=== PATIENT | male | born 1960 | race Caucasian/White ===

== ENCOUNTER 2016-10-20 11:46 | Emergency (ER) | payer SELFPAY ==
[~2016-10-20] VITALS: Ht 177.8 cm; Wt 84.0 kg
[2016-10-20 12:13] VITALS: BP 130/81; PULSE 58; RESP 18; TEMP 98.6; O2SAT 99
[2016-10-20 12:16] VITALS: BP 130/81; PULSE 58; RESP 18; TEMP 98.6; O2SAT 99
--- NOTE | 2016-10-20 12:38 | RADRPT ---
EXAM DATE/TIME: 10/20/2016 12:04 [place] COMPARISON: No previous studies available for comparison. INDICATIONS : Patient was sent from [place] because of irregular EKG and chest pain this morning. MEDICAL HISTORY : None. SURGICAL HISTORY : None. ENCOUNTER: Initial ACUITY: 1 day PAIN SCORE: 4/10 LOCATION: Bilateral chest FINDINGS: A single view of the chest demonstrates the lungs to be symmetrically aerated without evidence of mas s, infiltrate or effusion. The cardiomediastinal contours are unremarkable. Osseous structures are intact. CONCLUSION: No acute disease. Nathan Reeder MD FACR on October 20, 2016 at 12:36 Board Certified Radiologist. This report was verified electronically.
[2016-10-20 12:48] LABS: AUTOMATED NEUTROPHIL # 4.3 TH/MM3 (1.8-7.7); BASOPHIL % 0.5 % (0.0-2.0); EOSINOPHIL # 0.2 TH/MM3 (0-0.4); EOSINOPHIL % 2.6 % (0.0-4.0); HEMO FLAGS DIFF FINAL; LYMPH % 22.5 % (9.0-44.0); LYMPHOCYTE # 1.5 TH/MM3 (1.0-4.8); MEAN CORPUSCULAR HEMOGLOBIN 31.5 PG (27.0-34.0); MEAN CORPUSCULAR HGB CONC 35.4 % (32.0-36.0); MONO % 8.9 % (0.0-8.0); NEUT % 65.5 % (16.0-70.0); PLATELET COUNT 159 TH/MM3 (150-450); RED BLOOD COUNT 4.72 MIL/MM3 (4.50-5.90); WHITE BLOOD COUNT 6.6 TH/MM3 (4.0-11.0)
--- NOTE | 2016-10-20 12:59 | PD ---
HPI Chief Complaint: Abnormal Results Time Seen by Provider: 12:57 Travel History International Travel<30 days: No Contact w/Intl Traveler<30days: No Traveled to known affect area: No History of Present Illness HPI Patient comes to emergency Department from the [place] after having an abnormal EKG while at the [place] today. Patient reports he is getting an EKG done for a colonoscopy that scheduled in January. Patient denies any chest pain, shortness of breath, dizziness, syncope, lightheadedness, nausea, vomiting, headache, numbness or tingling or, loss change in bowel or bladder, back pain, neck pain, or history of heart disease. Patient denies anything making symptoms better or worse. Patient denies ever having a stress test. Patient reports he runs approximately 4 miles a week has had no issues with this. [facility] Past Medical History Medical History: Denies Significant Hx Tetanus Vaccination: Unknown Influenza Vaccination: No ?: Not Past Surgical History Surgical History: No Previous Surgery Social History Alcohol Use: Yes (4 BEERS/ WEEK ) Tobacco Use: No Substance Use: No Allergies-Medications (Allergen,Severity, Reaction): Coded Allergies: No Known Allergies (Unverified , 10/20/16) Reported Meds & Prescriptions Reported Meds & Active Scripts Active No Active Prescriptions or Reported Medications Review of Systems Except as stated in HPI: all other systems reviewed are Neg Physical Exam Narrative GENERAL: Well-developed, well nourished, in no acute distress, and non-ill appearing. SKIN: Focused skin assessment warm and dry. HEAD: Atraumatic. Normocephalic. EYES: Pupils equal and round. EOMI. No scleral icterus. No injection or drainage. ENT: No nasal bleeding or discharge. Mucous membranes pink and moist. NECK: Trachea midline. No JVD. Supple. No nuclear rigidity. CARDIOVASCULAR: Regular rate and rhythm. No murmur appreciated. RESPIRATORY: No accessory muscle use. No respiratory distress. Clear to auscultation. Breath sounds equal bilaterally. MUSCULOSKELETAL: No obvious deformities. No clubbing. No cyanosis. No edema. Full range of motion. NEUROLOGICAL: Awake and alert. No obvious cranial nerve deficits. Motor grossly within normal limits. Normal speech. PSYCHIATRIC: Appropriate mood and affect; insight and judgment normal. Data Data Last Documented VS Vital Signs Date Time Temp Pulse Resp B/P Pulse Ox O2 Delivery O2 Flow Rate FiO2 10/20/16 12:16 98.6 58 18 130/81 99 Room Air Orders Electrocardiogram (10/20/16 11:52) Complete Blood Count With Diff (10/20/16 11:52) Basic Metabolic Panel (Bmp) (10/20/16 11:52) Ckmb (Isoenzyme) Profile (10/20/16 11:52) Troponin I (10/20/16 11:52) Chest, Single Ap (10/20/16 11:52) Labs Laboratory Tests Test 10/20/16 12:20 White Blood Count 6.6 TH/MM3 Red Blood Count 4.72 MIL/MM3 Hemoglobin 14.9 GM/DL Hematocrit 42.0 % Mean Corpuscular Volume 89.0 FL Mean Corpuscular Hemoglobin 31.5 PG Mean Corpuscular Hemoglobin 35.4 % Concent Red Cell Distribution Width 13.0 % Platelet Count 159 TH/MM3 Mean Platelet Volume 8.9 FL Neutrophils (%) (Auto) 65.5 % Lymphocytes (%) (Auto) 22.5 % Monocytes (%) (Auto) 8.9 % Eosinophils (%) (Auto) 2.6 % Basophils (%) (Auto) 0.5 % Neutrophils # (Auto) 4.3 TH/MM3 Lymphocytes # (Auto) 1.5 TH/MM3 Monocytes # (Auto) 0.6 TH/MM3 Eosinophils # (Auto) 0.2 TH/MM3 Basophils # (Auto) 0.0 TH/MM3 CBC Comment DIFF FINAL Differential Comment Sodium Level 141 MEQ/L Potassium Level 4.2 MEQ/L Chloride Level 108 MEQ/L Carbon Dioxide Level 25.9 MEQ/L Anion Gap 7 MEQ/L Blood Urea Nitrogen 17 MG/DL Creatinine 1.15 MG/DL Estimat Glomerular Filtration 66 ML/MIN Rate Random Glucose 86 MG/DL Calcium Level 8.7 MG/DL Total Creatine Kinase 81 U/L Troponin I 0.02 NG/ML [facility] Medical Decision Making Medical Screen Exam Complete: Yes Emergency Medical Condition: Yes Interpretation(s) EKG reviewed by Dr. Santana shows sinus bradycardia ventricular 55. Early repolarization. No STEMI. Chest x-ray read by the radiologist shows: No acute disease. Differential Diagnosis Acute coronary syndrome, abnormal EKG, normal EKG variant, electrolyte abnormality, other Narrative Course The patients EKG variant by history and evaluation appears noncardiac, nor noncardiopulmonary in etiology. There is no clinical evidence to suggest thoracic aortic aneurysms or pathology, nor evidence to suggest pulmonary embolism, pericarditis, pneumothorax, nor pneumonia at this time. The patient has no significant risk factors for cardiac disease, pulmonary embolism or aortic disease. Clinical suspicion was discussed with patient and the patient was instructed to follow up with their doctor. The patient agreed with plan. Patient in no obvious distress upon re-evaluation. All pertinent laboratory/ Radiology result(s) discussed with patient. Discussed patient with Dr. Santana prior to discharge, who is in agreement with plan of care and disposition. Any questions/concerns in reference to patient diagnosis/condition discussed and clarified prior to patient's discharge. Reinforced sheer importance of close follow up with patient's primary physician or primary care clinic. Instructed patient to return to ED immediately, if symptoms return/worsen. Pt showed understanding of above instructions. Further instructions and recommendations were detailed in discharge paperwork. Pt ambulated without difficulty out of ED at discharge. Diagnosis Primary Impression: Abnormal EKG Patient Instructions: Chest Pain (ED), General Instructions Additional Instructions: Follow-up with your primary care physician one to 2 days for further evaluation and possible outpatient stress testing. Return to the emergency department if symptoms get worse, chest pain, fevers, shortness breath, or for other emergent concerns.. Scripts No Active Prescriptions or Reported Meds Disposition: 01 DISCHARGE HOME Condition: Stable Marcel Fabian Oct 20, 2016 12:59
[2016-10-20 13:03] LABS: BICARBONATE 25.9 MEQ/L (21.0-32.0); POTASSIUM 4.2 MEQ/L (3.5-5.1)
--- NOTE | 2016-10-21 15:52 | EKG ---
Date Performed: 10/20/2016 Time Performed: 11:56:51 PTAGE: 56 years EKG: SINUS BRADYCARDIA MARKED ST ELEVATION, CONSIDER INFERIOR INJURY ACUTE IN NO PREVIOUS TRACING DOCTOR: Fletcher Skinner Interpretating Date/Time 10/21/2016 15:45:57
== END 2016-10-20 13:55 | disposition home or self-care (01) ==
LOC: NEDAMB 11:46
DX: R94.31 Abnormal electrocardiogram [ECG] [EKG] (principal)
CPT/HCPCS: 71010; 80048; 82550; 84484; 85025; 93005; 99285